=== PATIENT | male | born 1970 | race Caucasian/White ===

== ENCOUNTER 2017-03-28 14:42 | Emergency (ER) | payer MEDICAID ==
--- NOTE | 2017-03-28 15:13 | ED Physician Chart ---
Chief Complaint/HPI - Patient Information Date Seen:: 03/28/17 Time Seen:: 15:00 Chief Complaint:: RIGHT FACE ABSCESS History of Present Illness:: THIS IS A 46 YO MALE WITH A SWOLLEN LEFT LOWER MANDIBLE AREA THAT STARTED SEVERAL DAYS AGO. THE PATIENT IS NOW CONCERNED ABOUT THE PAIN AND POSSIBLE INFECTION. Allergies:: Allergies Allergy/AdvReac Type Severity Reaction Status Date / Time No Known Allergies Allergy Verified 03/28/17 14:55 Vitals:: Vital Signs - 8 hr 03/28/17 14:45 Temp 98.1 F HR 69 RR 16 BP 122/77 O2 Sat % 97 Historian:: Patient Review:: Nurse's Note Reviewed Review of Systems - Review of Systems General/Constitutional: No fever, No chills, No weight loss, No weakness, No diaphoresis, No edema, No loss of appetite Skin: No skin lesions, No rash, No bruising Head: No headache, No light-headedness Eyes: No loss of vision, No pain, No diplopia ENT: No earache, No nasal drainage, No sore throat, No tinnitus, Other (RIGHT LOWER DENTAL AREA SWELLING) Neck: No neck pain, No swelling, No thyromegaly, No stiffness, No mass noted Cardio Vascular: No chest pain, No palpitations, No PND, No orthopnea, No edema Pulmonary: No SOB, No cough, No sputum, No wheezing GI: No nausea, No vomiting, No diarrhea, No pain, No melena, No hematochezia, No constipation, No hematemesis G/U: No dysuria, No frequency, No hematuria Musculoskeletal: No bone or joint pain, No back pain, No muscle pain Endocrine: No polyuria, No polydipsia Psychiatric: No prior psych history, No depression, No anxiety, No suicidal ideation Hematopoietic: No bruising, No lymphadenopathy Allergic/Immuno: No urticaria, No angioedema Neurological: No syncope, No focal symptoms, No weakness, No paresthesia, No headache, No seizure, No dizziness, No confusion, No vertigo Past Medical History - Past Medical History Obtainable: Yes Past Medical History: No significant medical hx Family History: None Social History: Smoker, No Alcohol, No Drug Use Surgical History: other (COLON RESECTION) Psychiatricy History: None Medication: Reviewed Family Medical History - Family Member Mother History Unknown: Yes Other Medical History: denies family medical hx Physical Exam - Physical Examination General/Constitutional: Awake, Well-developed, well-nourished, Alert, No distress, GCS 15, Non-toxic appearing, Ambulatory Head: Atraumatic Eyes: Lids, conjuctiva normal, PERRL, EOMI Skin: Nl inspection, No rash, No skin lesions, No ecchymosis, Well hydrated, No lymphadenopathy ENMT: External ears, nose nl, Nasal exam nl Other ENMT comments:: RIGHT LOWER CANINE AREA IS SWOLLEN AND TENDER. Neck: Nontender, Full ROM w/o pain, No JVD, No nuchal rigidity, No bruit, No mass, No stridor Respiratory: Nl effort/Exclusion, Clear to Auscultation, No Wheeze/Rhonchi/Rales Cardio Vascular: RRR, No murmur, gallop, rubs, NL S1 S2 GI: No tenderness/rebounding/guarding, No organomegaly, No hernia, Normal BS's, Nondistended, No mass/bruits, No McBurney tenderness : No CVA tenderness Extremities: No tenderness or effusion, Full ROM, normal strength in all extremities, No edema, Normal digits & nails Neuro/Psych: Alert/oriented, DTR's symmetric, Normal sensory exam, Normal motor strength, Judgement/insight normal, Mood normal, Normal gait, No focal deficits Misc: normal gait, Normal back, No paraspinal tenderness Labs/Radiology/EKG Results - Lab Results Results: Abnormal Lab Results 03/28/17 03/28/17 03/28/17 15:29 15:29 15:29 WBC 9.9 RBC 4.75 Hgb 13.8 Hct 41.5 MCV 87.3 MCH 29.1 MCHC Differential 33.3 RDW 12.6 Plt Count 238 MPV 7.7 Neutrophils % 71.5 Lymphocytes % 17.2 L Monocytes % 9.4 Eosinophils % 1.8 Basophils % 0.1 PTT (Actin FS) 32.8 Sodium 133 L Potassium 3.8 Chloride 101 Carbon Dioxide 28.9 Anion Gap 6.9 L BUN 18 Creatinine 0.6 L Est GFR ( Amer) > 60.0 Est GFR (Non-Af Amer) > 60.0 BUN/Creatinine Ratio 30.0 Glucose 89 Calcium 9.5 Total Bilirubin 0.5 AST 13 ALT 11 Alkaline Phosphatase 149 H Troponin I Total Protein 7.8 Albumin 4.5 Globulin 3.3 Albumin/Globulin Ratio 1.4 03/28/17 15:29 WBC RBC Hgb Hct MCV MCH MCHC Differential RDW Plt Count MPV Neutrophils % Lymphocytes % Monocytes % Eosinophils % Basophils % PTT (Actin FS) Sodium Potassium Chloride Carbon Dioxide Anion Gap BUN Creatinine Est GFR ( Amer) Est GFR (Non-Af Amer) BUN/Creatinine Ratio Glucose Calcium Total Bilirubin AST ALT Alkaline Phosphatase Troponin I < 0.01 L Total Protein Albumin Globulin Albumin/Globulin Ratio - Radiology Results Results: CT SCAN OF THE MAXILLA = SOFT TISSUE SWELLING OF THE RIGHT MANDIBLE AREA. Assessment - Assessment General Assessment: ABSCESS RIGHT LOWER GUM AREA ED Septic Shock - . Is Septic Shock (SBP<90, OR Lactate>4 mmol\L) present?: No - <6hrs of presentation: Vital Signs: Vital Signs - 8 hr 03/28/17 14:45 Temp 98.1 F HR 69 RR 16 BP 122/77 O2 Sat % 97 Reassessment (Disposition) - Diagnosis Diagnosis:: RIGHT LOWER GUMS ABSCESS. - Aftercare/Follow up Instructions Aftercare/Follow-Up Instructions:: Counseled pt regarding lab results/diagnosis & need follow up, Refer to Discharge Instructions, Counseled pt & family regarding lab results/diagnosis & need follow up - Patient Disposition Discharge/Transfer:: Home Condition at Disposition:: Unchanged ED Discharge Plan - Patient Disposition Admit/Discharge/Transfer: PT DISCHARGED HOME Condition at Disposition: Improved
[2017-03-28 15:39] LABS: % BASOPHILS 0.1 % (0.0-2.0); % EOSINOPHILS 1.8 % (0.0-5.0); % LYMPHOCYTES 17.2 % (20.0-50.0); % MONOCYTES 9.4 % (2.0-10.0); % NEUTROPHILS 71.5 % (40.0-80.0); HEMATOCRIT 41.5 % (39.0-49.0); HEMOGLOBIN 13.8 gm/dL (13.2-17.3); MEAN CELL VOLUME 87.3 fl (80-99); MEAN CORPUSCULAR HEMOGLOBIN 29.1 pg (26.0-30.0); MEAN CORPUSCULAR HGB CONC 33.3 pg (28.0-36.0); MEAN PLATELET VOLUME 7.7 fl; NEUTROPHILE ABSOLUTE 7.1 Th/cmm (1.8-8.0); PLATELET COUNT 238 Th/cmm (150-400); RED BLOOD COUNT 4.75 Mil/cmm (4.30-5.70); RED CELL DISTRIBUTION WIDTH 12.6 % (11.5-20.0); WHITE BLOOD COUNT 9.9 Th/cmm (4.8-10.8)
--- NOTE | 2017-03-28 15:53 | Diagnostic Imaging Report ---
CT scan facial bones HISTORY: Pain, trauma Total DLP equals 251 CTDI equals 14.5 There is retention of normal bony margins about the orbits. No fractures. The zygomatic arches are intact. The pterygoid plates are intact. Nasal bones appear normal. Normal aeration of the paranasal sinuses. IMPRESSION: No acute bony abnormalities
[2017-03-28 15:54] LABS: ALB/GLOB RATIO 1.4 (1.0-1.8); ALKALINE PHOSPHATASE 149 U/L (34-104); ANION GAP 6.9 (7.0-16.0); BILIRUBIN,TOTAL 0.5 mg/dL (0.3-1.0); BUN - UREA NITROGEN 18 mg/dL (7-25); CALCIUM SERUM 9.5 mg/dL (8.6-10.3); CARBON DIOXIDE 28.9 mEq/L (21.0-31.0); CHLORIDE 101 mEq/L (98-107); CREATININE - SERUM 0.6 mg/dL (0.7-1.3); GLUCOSE 89 mg/dL (70-105); POTASSIUM SERUM 3.8 mEq/L (3.5-5.1); SGOT 13 U/L (13-39); SGPT/ALT 11 U/L (7-52); SODIUM SERUM 133 mEq/L (136-145)
== END 2017-03-28 16:30 | disposition home or self-care (01) ==
LOC: ER 14:42
DX: K05.219 Aggressive periodontitis, localized, unspecified severity (principal); F17.200 Nicotine dependence, unspecified, uncomplicated
CPT/HCPCS: 99285; 96372 ×2; 70486; 84484; 36415; 84443; 86592; 85025; 85730; 80053; 87040 ×2; J1885; J0696